=== PATIENT | male | born 1990 | race Caucasian/White ===

== ENCOUNTER 2017-05-20 07:17 | Emergency (ER) | payer SELFPAY ==
[~2017-05-20] VITALS: Ht 172.7 cm; Wt 73.1 kg
[~2017-05-20 07:17] MED LIST: INDOCIN25 MG PO; SERTRALINE HCL100 MG PO; ULTRACET1 TABLET PO
[2017-05-20 07:22] VITALS: BP 145/77
[2017-05-20] MEDS ORDERED: VALIUM2 MG PO (07:39)
[2017-05-20] MEDS ORDERED: NAPROSYN500 MG PO (07:39)
== END 2017-05-20 08:02 | disposition home or self-care (01) ==
LOC: EME 07:17
DX: S16.1XXA Strain of muscle, fascia and tendon at neck level, initial encounter (principal); M62.838 Other muscle spasm
CPT/HCPCS: 99281; 99283